=== PATIENT | female | born 1950 ===

== ENCOUNTER 2018-06-23 18:19 | Emergency (ER) | payer MEDICAID ==
[2018-06-23] MEDS ORDERED: Sodium Chloride 0.9% 1,000 ML IV ONE (18:20)
--- NOTE | 2018-06-23 19:07 | EDM.PDOC ---
ED HPI GENERAL MEDICAL PROBLEM - General Chief Complaint: Upper Extremity Injury/Pain Stated Complaint: FALL Time Seen by Provider: 06/23/18 19:02 Source of Information: Reports: Patient, EMS, Skilled Nursing Records History Limitations: Reports: No Limitations - History of Present Illness INITIAL COMMENTS - FREE TEXT/NARRATIVE: HISTORY AND PHYSICAL: History of present illness: Patient is a 68-year-old female who presents to the ED today via EMS with received a call from [facility] after patient had fallen at the dinner table. [facility]ital did call and give report. Per report, patient who is normally somewhat ambulatory state up at the dinner table and fell and hit her right shoulder and right side of her head but this states that patient at baseline does have dementia but is usually conversational. After getting her back into her chair, at this states that she seemed not herself and was complaining of her right shoulder hurting. Upon arrival to the ED, patient is shaking and saying her right and left shoulder hurt. Patient does not say her head hurts. Patient denies any other symptoms. Patient denies fever, chills, chest pain, shortness of breath, or cough. Denies headache, neck stiff ness, change in vision, syncope, or near syncope. Denies nausea, vomiting, abdominal pain, diarrhea, constipation, or dysuria. Has not noted any blood in urine or stool. Patient has been eating and drinking appropriately. Review of systems: As per history of present illness and below otherwise all systems reviewed and negative. Past medical history: As per history of present illness and as reviewed below otherwise noncontributory. Surgical history: As per history of present illness and as reviewed below otherwise noncontributory. Social history: See social history for further information Family history: As per history of present illness and as reviewed below otherwise noncontributory. Physical exam: General: Patient is alert, oriented to self, and in no acute distress. Patient laying comfortably on exam table and is slightly shaking. HEENT: Atraumatic, normocephalic, pupils equal and reactive bilaterally, negative for conjunctival pallor or scleral icterus, mucous membranes moist, TMs normal bilaterally, throat clear, neck supple, nontender, trachea midline. No drooling or trismus noted. No meningeal signs. No hot potato voice noted. There is a centimeter area of erythema on the left top lip without bleeding or breaking of the lip. No obvious head deformities, pain to palpation of the head , step-offs, or crepitus of the complete head and skull. Lungs: Clear to auscultation, breath sounds equal bilaterally, chest nontender. Heart: S1S2, regular rate and rhythm without overt murmur Abdomen: Soft, nondistended, nontender. Negative for masses or hepatosplenomegaly. Negative for costovertebral tenderness. Pelvis: Stable nontender. Genitourinary: Deferred. Rectal: Deferred. Skin: Intact, warm, dry. No lesions or rashes noted. Extremities/musculoskeletal: Negative for cords or calf pain. Neurovascular unremarkable. Unable to assess range of motion of bilateral upper extremitie shoulders due to pain. Patient is hesitant to allow me to touch her upper shoulders. Pain to palpation of the bilateral shoulders. Patient does have full range of motion of bilateral elbows and wrists and all digits. No pain to palpation other than shoulders. Radial pulses grossly intact bilaterally. There is no obvious deformities to either shoulder. There is a superficial excoriation on the right knee with full range of motion of the knee with passive range of motion. Dorsalis pedis and posterior tibial pulses are grossly intact bilaterally. Neuro: Awake, alert, oriented. Cranial nerves II through XII unremarkable. Cerebellum unremarkable. Motor and sensory unremarkable throughout. Exam nonfocal. Notes: Dr. Camejo verbally involved in patient care. Called to [facility] and spoke to Dr. Morse, orthopedic on-call, who I discussed the patient's history and physical findings in detail. Per his recommendation, she is not a surgical candidate and recommends splinting arm with a follow-up within 1 week with an orthopedic provider. Voices understanding and is agreeable to plan of care. Denies any further questions or concerns at this time. Diagnostics: CBC, CMP, blood cultures 2, lactate, UA, chest x-ray, head CT, left and right humerus x-ray, right knee x-ray, left and right shoulder x-ray, EKG, troponin Therapeutics: Saline Prescription: Keflex, [place] #30 Impression: Humeral head/neck comminuted fracture Urinary Tract Infection Plan: 1. Take medications as prescribed. 2. Follow-up with an orthopedic provider within one week. 3. Return to the ED as needed and as discussed. Definitive disposition and diagnosis as appropriate pending reevaluation and review of above. Bilateral Shoulder Pain Score (Numeric/FACES): 6 - Related Data Allergies Allergy/AdvReac Type Severity Reaction Status Date / Time No Known Allergies Allergy Verified 06/23/18 18:23 Home Meds: Home Meds Acetaminophen 500 mg PO Q4HR 06/23/18 [History] Albuterol Sulfate 2.5 mg IH ASDIRECTED 06/23/18 [History] Bisacodyl [Biscolax] 10 mg RC ASDIRECTED 06/23/18 [History] Budesonide [Pulmicort] 0.25 mg IH BID 06/23/18 [History] Lisinopril 10 mg PO DAILY 06/23/18 [History] Multivitamin [Multi-Vitamin Daily] 1 tab PO DAILY 06/23/18 [History] Pepsin [Pepsin 3,000 Digestion] 1 gm MC DAILY 06/23/18 [History] Phenyleph/Mineral Oil/Petrolat [Hemorrhoidal Ointment] 57 gm RC ASDIRECTED 06/23 [History] Triamcinolone Acetonide [Triamcinolone Acetonide 0.1% Oint] 15 gm .XX ASDIRECTED 06/23/18 [History] hydroCHLOROthiazide [Hydrochlorothiazide] 25 mg PO DAILY 06/23/18 [History] Past Medical History HEENT History: Reports: Cataract, Hard of Hearing, Impaired Vision Cardiovascular History: Reports: Hypertension Respiratory History: Reports: Asthma Gastrointestinal History: Reports: Other (See Below) Other Gastrointestinal History: crohn's Neurological History: Reports: Other (See Below) Other Neuro History: dementia Endocrine/Metabolic History: Reports: Hypothyroidism - Past Surgical History GI Surgical History: Reports: Small Bowel Female Surgical History: Reports: Hysterectomy Social & Family History - Tobacco Use Smoking Status *Q: Never Smoker Review of Systems - Review of Systems Review Of Systems: ROS reveals no pertinent complaints other than HPI. ED EXAM, GENERAL - Physical Exam Exam: See Below (See dictation) Course - Vital Signs Last Recorded V/S: Last Vital Signs Temp 37.2 C 06/23/18 19:51 Pulse 92 06/23/18 19:51 Resp 24 H 06/23/18 19:51 BP 178/84 H 06/23/18 19:51 Pulse Ox 96 06/23/18 19:51 - Orders/Labs/Meds Orders: Active Orders 24 hr Category Date Time Status EKG Documentation Completion [RC] STAT Care 06/23/18 19:04 Active CULTURE BLOOD [BC] Stat Lab 06/23/18 18:45 Results CULTURE BLOOD [BC] Stat Lab 06/23/18 18:54 Results CULTURE URINE [RM] Stat Lab 06/23/18 20:07 Received Blood Culture x2 Reflex Set [OM.PC] Stat Oth 06/23/18 18:20 Ordered Labs: Laboratory Tests 06/23/18 06/23/18 06/23/18 Range/Units 18:45 18:45 18:45 WBC 14.94 H (4.0-11.0) K/uL RBC 4.91 (4.30-5.90) M/uL Hgb 15.6 (12.0-16.0) g/dL Hct 45.4 (36.0-46.0) % MCV 92.5 (80.0-98.0) fL MCH 31.8 (27.0-32.0) pg MCHC 34.4 (31.0-37.0) g/dL RDW Std Deviation 46.0 (28.0-62.0) fl RDW Coeff of Darrel 14 (11.0-15.0) % Plt Count 334 (150-400) K/uL MPV 10.30 (7.40-12.00) fL Neut % (Auto) 52.8 (48.0-80.0) % Lymph % (Auto) 32.6 (16.0-40.0) % [place] % (Auto) 8.8 (0.0-15.0) % Eos % (Auto) 5.4 (0.0-7.0) % Baso % (Auto) 0.4 (0.0-1.5) % Neut # (Auto) 7.9 H (1.4-5.7) K/uL Lymph # (Auto) 4.9 H (0.6-2.4) K/uL [place] # (Auto) 1.3 H (0.0-0.8) K/uL Eos # (Auto) 0.8 H (0.0-0.7) K/uL Baso # (Auto) 0.1 (0.0-0.1) K/uL Nucleated RBC % 0.0 /100WBC Nucleated RBCs # 0 K/uL Lactate 3.6 H (0.20-2.00) mmol/L Sodium 132 L (136-145) mmol/L Potassium 3.9 (3.5-5.1) mmol/L Chloride 94 L (98-107) mmol/L Carbon Dioxide 25.4 (21.0-32.0) mmol/L BUN 16 (7.0-18.0) mg/dL Creatinine 1.1 H (0.6-1.0) mg/dL Est Cr Clr Drug Dosing TNP Estimated GFR (MDRD) 49.2 ml/min Glucose 139 H (74-106) mg/dL Calcium 10.0 (8.5-10.1) mg/dL Total Bilirubin 0.4 (0.2-1.0) mg/dL AST 62 H (15-37) IU/L ALT 111 H (14-63) IU/L Alkaline Phosphatase 66 (46-116) U/L Troponin I (0.000-0.056) ng/mL Total Protein 7.7 (6.4-8.2) g/dL Albumin 4.1 (3.4-5.0) g/dL Globulin 3.6 (2.6-4.0) g/dL Albumin/Globulin Ratio 1.1 (0.9-1.6) Urine Color Urine Appearance Urine pH (5.0-8.0) Ur Specific [place] (1.001-1.035) Urine Protein (NEGATIVE) mg/dL Urine Glucose (UA) (NEGATIVE) mg/dL Urine Ketones (NEGATIVE) mg/dL Urine Occult Blood (NEGATIVE) Urine Nitrite (NEGATIVE) Urine Bilirubin (NEGATIVE) Urine Urobilinogen (<2.0) EU/dL Ur Leukocyte Esterase (NEGATIVE) Urine RBC (0-2/HPF) Urine WBC (0-5/HPF) Ur Epithelial Cells (NONE-FEW) Urine Bacteria (NEGATIVE) 06/23/18 06/23/18 Range/Units 18:45 20:07 WBC (4.0-11.0) K/uL RBC (4.30-5.90) M/uL Hgb (12.0-16.0) g/dL Hct (36.0-46.0) % MCV (80.0-98.0) fL MCH (27.0-32.0) pg MCHC (31.0-37.0) g/dL RDW Std Deviation (28.0-62.0) fl RDW Coeff of Darrel (11.0-15.0) % Plt Count (150-400) K/uL MPV (7.40-12.00) fL Neut % (Auto) (48.0-80.0) % Lymph % (Auto) (16.0-40.0) % [place] % (Auto) (0.0-15.0) % Eos % (Auto) (0.0-7.0) % Baso % (Auto) (0.0-1.5) % Neut # (Auto) (1.4-5.7) K/uL Lymph # (Auto) (0.6-2.4) K/uL [place] # (Auto) (0.0-0.8) K/uL Eos # (Auto) (0.0-0.7) K/uL Baso # (Auto) (0.0-0.1) K/uL Nucleated RBC % /100WBC Nucleated RBCs # K/uL Lactate (0.20-2.00) mmol/L Sodium (136-145) mmol/L Potassium (3.5-5.1) mmol/L Chloride (98-107) mmol/L Carbon Dioxide (21.0-32.0) mmol/L BUN (7.0-18.0) mg/dL Creatinine (0.6-1.0) mg/dL Est Cr Clr Drug Dosing Estimated GFR (MDRD) ml/min Glucose (74-106) mg/dL Calcium (8.5-10.1) mg/dL Total Bilirubin (0.2-1.0) mg/dL AST (15-37) IU/L ALT (14-63) IU/L Alkaline Phosphatase (46-116) U/L Troponin I < 0.050 (0.000-0.056) ng/mL Total Protein (6.4-8.2) g/dL Albumin (3.4-5.0) g/dL Globulin (2.6-4.0) g/dL Albumin/Globulin Ratio (0.9-1.6) Urine Color YELLOW Urine Appearance HAZY Urine pH 6.0 (5.0-8.0) Ur Specific [place] 1.010 (1.001-1.035) Urine Protein NEGATIVE (NEGATIVE) mg/dL Urine Glucose (UA) NEGATIVE (NEGATIVE) mg/dL Urine Ketones NEGATIVE (NEGATIVE) mg/dL Urine Occult Blood NEGATIVE (NEGATIVE) Urine Nitrite POSITIVE H (NEGATIVE) Urine Bilirubin NEGATIVE (NEGATIVE) Urine Urobilinogen 0.2 (<2.0) EU/dL Ur Leukocyte Esterase NEGATIVE (NEGATIVE) Urine RBC 0-2 (0-2/HPF) Urine WBC 1-2 (0-5/HPF) Ur Epithelial Cells FEW (NONE-FEW) Urine Bacteria 3+ H (NEGATIVE) Meds: Medications Discontinued Medications Generic Name Dose Route Start Last Admin Trade Name Freq PRN Reason Stop Dose Admin Sodium Chloride 1,000 mls @ 999 mls/hr 06/23/18 18:20 06/23/18 18:57 Normal Saline IV 06/23/18 19:20 999 mls/hr STAT ONE Administration Ceftriaxone Sodium/Dextrose 1 50 mls @ 100 mls/hr 06/23/18 19:52 06/23/18 20: 12 gm/ Premix IV 06/23/18 20:21 100 mls/hr ONETIME ONE Administration Morphine Sulfate 2 mg 06/23/18 20:25 Morphine IVPUSH 06/23/18 20:26 ONETIME ONE Departure - Departure Time of Disposition: 20:34 Disposition: DC/[facility]fer to [facility] Clinical Impression: Urinary tract infection Qualifiers: Urinary tract infection type: acute cystitis Hematuria presence: with hematuria Qualified Code(s): N30.01 - Acute cystitis with hematuria Humerus head fracture Qualifiers: Encounter type: initial encounter Fracture type: closed Laterality: left Qualified Code(s): S42.292A - Other displaced fracture of upper end of left humerus, initial encounter for closed fracture - Discharge Information Instructions: Humerus Fracture Treated With Immobilization, [id number], Urinary Tract Infection, Adult Referrals: Marko Dale MD [Primary Care Provider] - Forms: ED Department Discharge Additional Instructions: The following information is given to patients seen in the emergency department who are being discharged to home. This information is to outline your options for follow-up care. We provide all patients seen in our emergency department with a follow-up referral. The need for follow-up, as well as the timing and circumstances, are variable depending upon the specifics of your emergency department visit. If you don't have a primary care physician on staff, we will provide you with a referral. We always advise you to contact your personal physician following an emergency department visit to inform them of the circumstance of the visit and for follow-up with them and/or the need for any referrals to a consulting specialist. The emergency department will also refer you to a specialist when appropriate. This referral assures that you have the opportunity for follow-up care with a specialist. All of these measure are taken in an effort to provide you with optimal care, which includes your follow-up. Under all circumstances we always encourage you to contact your private physician who remains a resource for coordinating your care. When calling for follow-up care, please make the office aware that this follow-up is from your recent emergency room visit. If for any reason you are refused follow-up, please contact the [facility] Emergency Department at and asked to speak to the emergency department charge nurse. [facility] [address] [place], [place] [id number] [address] [address] [facility] [address] [place] [address], [address] [place] [address] 1. Take medications as prescribed. 2. Follow-up with an orthopedic provider within one week. 3. Return to the ED as needed and as discussed. - My Orders Last 24 Hours: My Active Orders 06/23/18 18:20 Blood Culture x2 Reflex Set [OM.PC] Stat 06/23/18 18:45 CULTURE BLOOD [BC] Stat 06/23/18 18:54 CULTURE BLOOD [BC] Stat 06/23/18 19:04 EKG Documentation Completion [RC] STAT 06/23/18 20:07 CULTURE URINE [RM] Stat - Assessment/Plan Last 24 Hours: My Active Orders 06/23/18 18:20 Blood Culture x2 Reflex Set [OM.PC] Stat 06/23/18 18:45 CULTURE BLOOD [BC] Stat 06/23/18 18:54 CULTURE BLOOD [BC] Stat 06/23/18 19:04 EKG Documentation Completion [RC] STAT 06/23/18 20:07 CULTURE URINE [RM] Stat
[2018-06-23 19:25] LABS: CHLORIDE,CL 94 mmol/L (98-107); SODIUM,NA 132 mmol/L (136-145)
[2018-06-23] MEDS ORDERED: cefTRIAXone 1 GM in Premix Bag 1 BAG IV ONE (19:52)
--- NOTE | 2018-06-23 19:53 | CT ---
HISTORY: Head pain after a fall. COMPARISON: None. TECHNIQUE: Noncontrast axial images were obtained from the skullbase to the vertex and reviewed in brain, blood in bone windows. FINDINGS: Periventricular deep white matter hypodensities are likely chronic in etiology. No evidence for acute intracranial hemorrhage or infarction. No midline shift or mass effect. The ventricles are nondilated and symmetric. No abnormal intra or extra-axial fluid collection. Mild mucosal thickening and fluid in the maxillary sinuses. The bony calvaria are intact. IMPRESSION: No acute intracranial hemorrhage. Deep white matter hypodensities are likely chronic. MRI is more sensitive for changes of acute ischemia. Please note that all CT scans at this facility use dose modulation, iterative reconstruction, and/or weight-based dosing when appropriate to reduce radiation dose to as low as reasonably achievable. Dictated by Rosie Burt MD @ Jun 23 2018 7:49PM Signed by Dr. Rosie Burt @ Jun 23 2018 7:52PM
--- NOTE | 2018-06-23 19:54 | CR ---
HISTORY: Fall. COMPARISON: None. FINDINGS: Single portable AP view of the chest. The lungs are clear. Costophrenic angles sharp. Heart size and pulmonary vascularity are within normal limits. Acute comminuted fracture of the left humeral neck. Dictated by Rosie Burt MD @ Jun 23 2018 7:52PM Signed by Dr. Rosie Burt @ Jun 23 2018 7:53PM
--- NOTE | 2018-06-23 19:56 | CR ---
HISTORY: Fall. Right arm pain. COMPARISON: None. FINDINGS: The right humerus is intact. No evidence for acute fracture. Dictated by Rosie Burt MD @ Jun 23 2018 7:55PM Signed by Dr. Rosie Burt @ Jun 23 2018 7:55PM
--- NOTE | 2018-06-23 19:56 | CR ---
HISTORY: Fall. COMPARISON: None. FINDINGS: Acute comminuted fracture of the left humeral neck. Dictated by Rosie Burt MD @ Jun 23 2018 7:54PM Signed by Dr. Rosie Burt @ Jun 23 2018 7:55PM
--- NOTE | 2018-06-23 19:56 | CR ---
HISTORY: Fall. COMPARISON: None. FINDINGS: No evidence for acute fracture or dislocation. Mild degenerative changes in the right shoulder. Dictated by Rosie Burt MD @ Jun 23 2018 7:54PM Signed by Dr. Rosie Burt @ Jun 23 2018 7:54PM
--- NOTE | 2018-06-23 19:56 | CR ---
HISTORY: Fall. COMPARISON: None. FINDINGS: Acute comminuted fracture of the left humeral neck. No significant dislocation. Dictated by Rosie Burt MD @ Jun 23 2018 7:53PM Signed by Dr. Rosie Burt @ Jun 23 2018 7:54PM
--- NOTE | 2018-06-23 19:58 | CR ---
HISTORY: Fall. Right knee pain. COMPARISON: None. FINDINGS: No evidence for acute fracture or dislocation. No significant joint effusion. Dictated by Rosie Burt MD @ Jun 23 2018 7:56PM Signed by Dr. Rosie Burt @ Jun 23 2018 7:56PM
[2018-06-23] MEDS ORDERED: Morphine 2 MG/ML Syringe IVPUSH ONE (20:25)
== END 2018-06-23 21:12 ==
LOC: MW.ED 18:19
DX: S42.292A Other displaced fracture of upper end of left humerus, initial encounter for closed fracture (principal); N30.01 Acute cystitis with hematuria; I10 Essential (primary) hypertension; W17.89XA Other fall from one level to another, initial encounter
CPT/HCPCS: 36415; 70450; 71045; 73030; 73060; 73562; 80053; 81001; 83605; 84484; 85025; 87040; 87086; 87088; 87186; 93005; 96361; 96365; 96375; 99284; J0696; J2270; J7040